=== PATIENT | female | born 1955 | race Caucasian/White ===

== ENCOUNTER 2019-09-25 10:42 | Outpatient (CLI) | payer OTHER, SELFPAY ==
[2019-09-25 10:59] LABS: Basophils Percent Auto 1.1 % (0.2-1.2); Eosinophils Absolute Auto 0.2 K/mm3 (0-0.3); Eosinophils Percent Auto 4.4 % (0-4.4); Hematocrit 36.8 % (37.0-47.0); Immature Granulocyte Absolute 0.01 K/mm3 (0.00-0.031); Immature Granulocyte Percent A 0.3 % (0-0.5); Lymphocytes Absolute Auto 1.34 K/mm3 (0.9-3.2); Lymphocytes Percent Auto 36.6 % (18.3-44.2); Mean Corpuscular HGB Conc 32.6 g/dl (32-36); Mean Corpuscular Hemoglobin 29.7 pg (26-34); Mean Corpuscular Volume 91.1 fl (80-100); Mean Platelet Volume 11.8 fl (7.4-10.4); Monocytes Absolute Auto 0.5 K/mm3 (0.1-0.6); Monocytes Percent Auto 13.1 % (2.6-8.5); Neutrophils Absolute Auto 1.6 K/mm3 (1.3-6.7); Neutrophils Percent Auto 44.5 % (45.5-73.1); Platelet Count Result 210 k/mm3 (150-375); Red Blood Count 4.04 M/mm3 (4.2-5.4); Red Cell Distribution Width 13.3 % (11.5-14.5); White Blood Count 3.7 K/mm3 (4.5-10.0)
[2019-09-25 11:53] LABS: Iron 108 ug/dL (37-170)
[2019-09-25 12:05] LABS: Percent Iron Saturation 30 % (20-50)
== END 2019-09-25 10:43 | disposition home or self-care (01) ==
PROVIDERS: PCP Internal Medicine; Visit Provider Internal Medicine Hematology & Oncology
DX: D50.9 Iron deficiency anemia, unspecified (principal)
CPT/HCPCS: 36415; 82728; 83540; 83550; 85025

== ENCOUNTER 2020-04-30 08:02 | Outpatient (CLI) | payer OTHER, SELFPAY ==
--- NOTE | ~2020-04-30 | MM_ITS ---
EXAMINATION: MM screening [facility] HISTORY: Screening TECHNIQUE: Craniocaudal and mediolateral oblique 3-D tomosynthesis images were obtained and synthetic 2-D images were generated. CAD analysis was submitted and interpreted. COMPARISON: Comparison to multiple prior studies sequentially, with oldest reviewed study dated 12/13. BREAST PARENCHYMAL COMPOSITION: There are scattered areas of fibroglandular density. FINDINGS: There is no evidence of suspicious mass, calcification, or architectural distortion to sugg est malignancy in either breast. There has been no suspicious interval change. IMPRESSION: 1. No mammographic evidence of malignancy. 2. Recommend routine screening mammography in one year. BI-RADS Category 1: Negative Reviewed, dictated and finalized at location A.
--- NOTE | ~2020-04-30 | DEXA_ITS ---
Bone Density Report Name: Trice Luna Age: 64 Sex: Female Ethnicity: White Date of : 1955 Indication: postmenopausal; height loss; hysterectomy; rheumatoid arthritis; Referring Provider: REGINA SALAZAR Study: Bone densitometry was performed. Exam Date: April 30, 2020 Accession number: [id number] Bone Density: Region BMD T-score Z-score Classification AP Spine (L1-L4) 1.143 0.9 2.5 Normal Femoral Neck (Left) 0.782 -0.6 0.8 Normal Total Hip (Left) 1.091 1.2 2.4 Normal Total Hip Bilateral Avg 1.095 1.3 2.4 Normal Femoral Neck (Right) 0.831 -0.2 1.3 Normal Total Hip (Right) 1.097 1.3 2.4 Normal World Health Organization criteria for BMD impression classify patients as: Normal (T-score at or above -1.0), Osteopenia (T-score between -1.0 and -2.5), or Osteoporosis (T-score at or below -2.5). 10-year Fracture Risk: FRAX not reported because: All T-scores for Spine Total, Hip Total, Femoral Neck at or above -1.0 Previous Exams: Region Exam Age BMD T-score BMD Change BMD Change Date g/cm2 vs Baseline vs Previous AP Spine(L1-L4) 04/30/2020 64 1.143 0.9 -0.050(-4.2%)# 0.023(2.0%) 03/05/2017 61 1.121 0.7 -0.073(-6.1%)# -0.073(-6.1%)# 12/09/2012 57 1.194 1.3 Total Hip(Left) 04/30/2020 64 1.091 1.2 -0.155(-12.4%) -0.081(-6.9%)* 03/05/2017 61 1.171 1.9 -0.074(-6.0%)# -0.074(-6.0%)# 12/09/2012 57 1.246 2.5 Total Hip(Right) 04/30/2020 64 1.097 1.3 -0.105(-8.7%)# -0.048(-4.2%)* 03/05/2017 61 1.144 1.7 -0.057(-4.8%)# -0.057(-4.8%)# 12/09/2012 57 1.202 2.1 *Denotes significance at 95% confidence level, LSC for AP Spine = 0.022 g/cm2, LSC for Total Hip = 0.027 g/cm2 Clinical Information Provided by Patient: Has rheumatoid arthritis Has used the following medications: HRT (i.e. estrogen/hormone therapy), Calcium Has the following medical conditions: Hysterectomy Patient maximum height was 67.5 Menopause Age: 55 No regular weight bearing exercise Drinks caffeinated beverages Onset of menses at age 13 Number of children 1 Impression: The patient has normal bone mass. The BMD for the Total Hip(Left) decreased, changing by -6.9% since the last DXA exam. The BMD for the Total Hip(Right) decreased, changing by -4.2% since the last DXA exam. Discussion: BONE DENSITY IS ABOVE THE MINIMUM DESIRABLE LEVEL AT ALL SKELETAL SITES TESTED. This patient?s bone mineral density is above the minimu
== END 2020-04-30 08:03 | disposition home or self-care (01) ==
LOC: ANHIMG 08:05
PROVIDERS: Visit Provider Obstetrics & Gynecology Gynecology
DX: Z12.31 Encounter for screening mammogram for malignant neoplasm of breast (principal); Z78.0 Asymptomatic menopausal state
CPT/HCPCS: 77063; 77067; 77080

== ENCOUNTER 2020-06-24 10:43 | Outpatient (CLI) | payer OTHER, SELFPAY ==
[2020-06-24 11:27] LABS: Basophils Percent Auto 1.2 % (0.2-1.2); Eosinophils Absolute Auto 0.2 K/mm3 (0-0.3); Eosinophils Percent Auto 4.5 % (0-4.4); Hematocrit 38.3 % (37.0-47.0); Hemoglobin 12.2 g/dL (12.0-15.0); Lymphocytes Absolute Auto 1.08 K/mm3 (0.9-3.2); Lymphocytes Percent Auto 32.3 % (18.3-44.2); Mean Corpuscular HGB Conc 31.9 g/dl (32-36); Mean Corpuscular Hemoglobin 29.8 pg (26-34); Mean Corpuscular Volume 93.6 fl (80-100); Mean Platelet Volume 12.4 fl (7.4-10.4); Monocytes Absolute Auto 0.5 K/mm3 (0.1-0.6); Monocytes Percent Auto 15.3 % (2.6-8.5); Neutrophils Absolute Auto 1.6 K/mm3 (1.3-6.7); Neutrophils Percent Auto 46.7 % (45.5-73.1); Platelet Count Result 181 k/mm3 (150-375); Red Blood Count 4.09 M/mm3 (4.2-5.4); White Blood Count 3.3 K/mm3 (4.5-10.0)
[2020-06-24 17:15] LABS: Iron 113 ug/dL (37-170)
[2020-06-24 17:16] LABS: Alanine Aminotransferase 23 U/L (4-35); Albumin Level 4.2 g/dL (3.5-5.1); Alkaline Phosphatase 74 U/L (38-126); Anion Gap 6 mmol/L (8-16); Aspartate Amino Transferase 27 U/L (14-36); Bilirubin,Total 0.3 mg/dL (0.2-1.3); Blood Urea Nitrogen 15 mg/dL (7-17); Calcium 9.3 mg/dL (8.4-10.2); Carbon Dioxide 30 mmol/L (22-30); Chloride 104 mmol/L (98-107); Estimated Glomerular Filt Rate > 60; Glucose 162 mg/dL (65-105); Potassium 4.1 mmol/L (3.4-5.0); Sodium 140 mmol/L (137-145)
[2020-06-24 17:25] LABS: Percent Iron Saturation 34 % (20-50)
== END 2020-06-24 10:44 | disposition home or self-care (01) ==
PROVIDERS: Visit Provider Internal Medicine Hematology & Oncology
DX: D50.9 Iron deficiency anemia, unspecified (principal)
CPT/HCPCS: 36415; 80053; 82728; 83540; 83550; 85025

== ENCOUNTER 2021-01-08 10:01 | Outpatient (CLI) | payer OTHER, SELFPAY ==
[2021-01-08 10:35] LABS: Basophils Percent Auto 0.8 % (0.2-1.2); Eosinophils Absolute Auto 0.3 K/mm3 (0-0.3); Eosinophils Percent Auto 5.8 % (0-4.4); Hemoglobin 12.4 g/dL (12.0-15.0); Immature Granulocyte Absolute 0.02 K/mm3 (0.00-0.031); Immature Granulocyte Percent A 0.4 % (0-0.5); Lymphocytes Absolute Auto 0.82 K/mm3 (0.9-3.2); Lymphocytes Percent Auto 15.8 % (18.3-44.2); Mean Corpuscular HGB Conc 31.8 g/dl (32-36); Mean Corpuscular Volume 91.1 fl (80-100); Mean Platelet Volume 12.4 fl (7.4-10.4); Monocytes Absolute Auto 0.4 K/mm3 (0.1-0.6); Monocytes Percent Auto 8.1 % (2.6-8.5); Neutrophils Absolute Auto 3.6 K/mm3 (1.3-6.7); Neutrophils Percent Auto 69.1 % (45.5-73.1); Platelet Count Result 216 k/mm3 (150-375); Red Blood Count 4.28 M/mm3 (4.2-5.4); Red Cell Distribution Width 13.6 % (11.5-14.5); White Blood Count 5.2 K/mm3 (4.5-10.0)
[2021-01-08 12:19] LABS: Alanine Aminotransferase 100 U/L (4-35); Albumin Level 3.8 g/dL (3.5-5.1); Alkaline Phosphatase 146 U/L (38-126); Anion Gap 5 mmol/L (8-16); Aspartate Amino Transferase 113 U/L (14-36); Bilirubin,Total 0.6 mg/dL (0.2-1.3); Blood Urea Nitrogen 16 mg/dL (7-17); Calcium 9.2 mg/dL (8.4-10.2); Carbon Dioxide 26 mmol/L (22-30); Chloride 105 mmol/L (98-107); Estimated Glomerular Filt Rate > 60; Glucose 269 mg/dL (65-105); Potassium 4.6 mmol/L (3.4-5.0); Sodium 136 mmol/L (137-145)
[2021-01-08 13:26] LABS: Iron 95 ug/dL (37-170)
[2021-01-08 13:42] LABS: Percent Iron Saturation 30 % (20-50)
== END 2021-01-08 10:02 | disposition home or self-care (01) ==
PROVIDERS: Visit Provider Internal Medicine Hematology & Oncology
DX: D50.9 Iron deficiency anemia, unspecified (principal); D68.59 Other primary thrombophilia
CPT/HCPCS: 36415; 80053; 82728; 83540; 83550; 85025

== ENCOUNTER 2021-01-18 07:57 | Outpatient (CLI) | payer OTHER, SELFPAY ==
--- NOTE | ~2021-01-18 | US_ITS ---
US abdomen complete EXAMINATION: US Abdomen Complete INDICATION: Elevated liver function tests PROCEDURE: Realtime High Resolution abdomen ultrasound. COMPARISON: No prior studies for comparison FINDINGS: Gallbladder is surgically absent. Common bile duct measures 4 mm. Liver echotexture is increased, consistent with fatty infiltration. There is a cyst right hepatic lob e.. Pancreas within normal limits. Pancreatic tail is obscured by bowel gas. Spleen is unremarkeab le. Renal echotexture is within normal limits bilaterally without hydronephrosis, contour deforming m ass or renal stone. Right kidney measures 12.6 cm. Left kidney measures 9.5 cm. Visualized aspects of the aorta and IVC are within normal limits. Portal vein is patent. No sonograph ic Cantrell's sign indicated by the technologist. IMPRESSION: 1: Hepatic steatosis. Reviewed, dictated and finalized at location A. IMPRESSION: 1: Hepatic steatosis.
== END 2021-01-18 07:58 | disposition home or self-care (01) ==
LOC: ANHIMG 08:02
PROVIDERS: Visit Provider Internal Medicine Hematology & Oncology
DX: R79.89 Other specified abnormal findings of blood chemistry (principal); K76.0 Fatty (change of) liver, not elsewhere classified
CPT/HCPCS: 76700

== ENCOUNTER 2021-05-01 15:22 | Outpatient (CLI) | payer OTHER, SELFPAY ==
--- NOTE | ~2021-05-01 | MM_ITS ---
EXAMINATION: MM screening [facility] w [facility] HISTORY: Screening mammogram TECHNIQUE: Craniocaudal and mediolateral oblique 3-D tomosynthesis images were obtained and synthetic 2-D images were generated. CAD analysis was submitted and interpreted. COMPARISON: No prior mammogram is available for comparison at this institution. BREAST PARENCHYMAL COMPOSITION: There are scattered areas of fibroglandular density. FINDINGS: There is no evidence of suspicious mass, calcification, or architectural distortion to sugg est malignancy in either breast. There has been no suspicious interval change. IMPRESSION: 1. No mammographic evidence of malignancy. 2. Recommend routine screening mammography in one year. BI-RADS Category 1: Negative Reviewed, dictated and finalized at location A.
== END 2021-05-01 15:23 | disposition home or self-care (01) ==
LOC: ANHIMG 15:24
PROVIDERS: Visit Provider Obstetrics & Gynecology Gynecology
DX: Z12.31 Encounter for screening mammogram for malignant neoplasm of breast (principal)
CPT/HCPCS: 77063; 77067

== ENCOUNTER 2021-07-08 13:16 | Outpatient (CLI) | payer OTHER, SELFPAY ==
[2021-07-08 13:48] LABS: Basophils Percent Auto 0.4 % (0.2-1.2); Eosinophils Absolute Auto 0.1 K/mm3 (0-0.3); Eosinophils Percent Auto 0.7 % (0-4.4); Hematocrit 42.1 % (37.0-47.0); Hemoglobin 13.8 g/dL (12.0-15.0); Immature Granulocyte Absolute 0.03 K/mm3 (0.00-0.031); Immature Granulocyte Percent A 0.4 % (0-0.5); Lymphocytes Absolute Auto 0.72 K/mm3 (0.9-3.2); Lymphocytes Percent Auto 8.7 % (18.3-44.2); Mean Corpuscular HGB Conc 32.8 g/dl (32-36); Mean Corpuscular Volume 88.4 fl (80-100); Mean Platelet Volume 12.6 fl (7.4-10.4); Monocytes Absolute Auto 0.5 K/mm3 (0.1-0.6); Monocytes Percent Auto 6.4 % (2.6-8.5); Neutrophils Absolute Auto 6.9 K/mm3 (1.3-6.7); Neutrophils Percent Auto 83.4 % (45.5-73.1); Platelet Count Result 197 k/mm3 (150-375); Red Blood Count 4.76 M/mm3 (4.2-5.4); White Blood Count 8.3 K/mm3 (4.5-10.0)
[2021-07-08 16:45] LABS: Iron 89 ug/dL (37-170)
[2021-07-08 16:50] LABS: Alanine Aminotransferase 43 U/L (4-35); Albumin Level 4.5 g/dL (3.5-5.1); Alkaline Phosphatase 119 U/L (38-126); Anion Gap 10 mmol/L (8-16); Aspartate Amino Transferase 33 U/L (14-36); Bilirubin,Total 0.6 mg/dL (0.2-1.3); Blood Urea Nitrogen 16 mg/dL (7-17); Calcium 9.3 mg/dL (8.4-10.2); Carbon Dioxide 24 mmol/L (22-30); Chloride 96 mmol/L (98-107); Estimated Glomerular Filt Rate > 60; Glucose 496 mg/dL (65-110); Potassium 4.5 mmol/L (3.4-5.0); Sodium 130 mmol/L (137-145)
[2021-07-08 16:55] LABS: Percent Iron Saturation 27 % (20-50)
== END 2021-07-08 13:17 | disposition home or self-care (01) ==
PROVIDERS: Visit Provider Internal Medicine Hematology & Oncology
DX: D50.9 Iron deficiency anemia, unspecified (principal); D68.59 Other primary thrombophilia
CPT/HCPCS: 36415; 80053; 82728; 83540; 83550; 85025

== ENCOUNTER 2021-11-02 13:56 | Emergency (ER) | payer MEDICARE, SELFPAY ==
--- NOTE | ~2021-11-02 | XR_ITS ---
EXAMINATION: XR knee LT 3V DATE: 11/02/2021 15:44 INDICATION: Abrasions to the left knee post ground-level fall TECHNIQUE: Anteroposterior, 2 oblique and crosstable lateral views of the left knee were obtained COMPARISON: None. FINDINGS: Alignment is normal. No fracture. Chondrocalcinosis best evident at the lateral compartment. There i s mild joint space narrowing the medial compartment which could be underestimated on nonweightbearing imaging. Ju-Stieda lesion with heterotopic ossification at the medial epicondylar origin of the medial collateral ligament consistent with sequela of chronic sprain. No left knee joint effusion /layering lipohemarthrosis. Soft tissues are unremarkable. IMPRESSION: 1. 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 No ac treasure osseous abnormality. 2. Ju-Stieda lesion consistent with sequela of chronic medial collateral ligament sprain. Reviewed, dictated and finalized at location A. IMPRESSION: 1. Chondral calcinosis and at least mild osteoarthritis in medial compartment o f the left knee. No acute osseous abnormality. 2. Ju-Stieda lesion consistent with sequela of chronic medial collater al ligament sprain.
--- NOTE | ~2021-11-02 | CT_ITS ---
EXAMINATION: CT brain wo con DATE: 11/02/2021 16:09 INDICATION: Head injury with hematoma both the left orbit post fall TECHNIQUE: Computed tomography (CT) of the head was performed without intravenous contrast. Sagittal and coronal reconstructions were performed. The mA was adjusted according to patient size. Iterative reconstruction technique was employed. The dose-length product was 605.33 mGy-cm. COMPARISON: head CT dated 05/25/2017 FINDINGS: Small left supraorbital scalp hematoma with preseptal soft tissue swelling at the left orbit. Bilater al globes appear intact with change of bilateral intraocular lens replacements. No post septal inflam matory stranding. No fracture. No acute intracranial hemorrhage, acute infarction or abnormal extra a xial fluid collection. There is mild scattered white matter hypoattenuation consistent with chronic s mall vessel ischemic disease. Ventricles are normal and symmetric. No mass/mass effect. The orbits, p aranasal sinuses and mastoid air cells are normal. IMPRESSION: 1. No fracture or acute intracranial process. 2. Mild scattered white matter hypoattenuation consistent with chronic small vessel ischemic disease. Reviewed, dictated and finalized at location A. IMPRESSION: 1. No fracture or acute intracranial process. 2. Mild scattered white matter hypoattenuation consistent with chronic small ve ssel ischemic disease.
[2021-11-02 14:03] VITALS: BP 130/90; PULSE 96; RESP 14; TEMP 37; O2SAT 100
--- NOTE | 2021-11-02 16:35 | ED.HEATRA ---
HPI - Head Injury General Chief complaint: Head Injury Stated complaint: fall/ struck head Time Seen by Provider: 11/02/21 15:16 Source: patient History of Present Illness HPI Narrative: Patient presents after a ground-level fall. Reports she was going on her daily walk with her and tripped over her own feet. She reports this happens from time to time she denies any prodrome prior to the fall such as chest pain shortness of breath or weakness. Reports she landed on her knees hands and then hit her face on the concrete. Plan encourage her to come to the ER for further evaluation. Denied any loss of conscious denies use of blood thinners she denies any nausea vomiting or changes in vision. Reports bruising to her left eye and an abrasion to her left knee. Her pain around her left eye is achy, constant, no radiation, no clear aggravating or alleviating factors. Related Data Allergies Allergy/AdvReac Type Severity Reaction Status Date / Time Cephalosporins Allergy Unknown Unknown Verified 11/02/21 15:08 prochlorperazine Allergy Unknown Unknown Verified 11/02/21 15:08 promethazine Allergy Unknown Unknown Verified 11/02/21 15:08 CEFTRIAXONE SODIUM Allergy Severe BODY Uncoded 09/10/21 15:35 STIFFNESS NKFA Allergy Unknown Unknown Uncoded 11/02/21 15:08 Review of Systems Review of Systems: CONSTITUTIONAL: Denies fever, chills, or sweats. EYES: Denies visual changes, redness, or discharge. ENT: Denies rhinorrhea, congestion, sore throat, or otalgia. CARDIOVASCULAR: Denies chest pain, palpitations, or edema. RESPIRATORY: Denies cough or dyspnea. GASTROINTESTINAL: Denies abdominal pain, nausea, vomiting, or diarrhea. GENITOURINARY: Denies dysuria or hematuria. SKIN: Denies rash or itching. MUSCULOSKELETAL: Denies back pain, or myalgia. NEUROLOGIC: Denies numbness, dizziness, or weakness. PSYCHIATRIC: Denies anxiety or depression. [facility] Family History Family History Father Hypertension Family history of diabetes mellitus in first degree relative Family history of heart disease in male family member before age 55 Mother Hypertension Family history of heart disease in male family member before age 55 Social History Social History Alcohol intake: current Exam Narrative: GENERAL: Well-appearing, well-nourished, and in no acute distress. HEAD: Normocephalic, moderate size hematoma above the left orbit with ecchymoses with associated abrasion EYES: PERRLA and EOMI. ENT: Nares clear, no rhinorrhea or epistaxis. Mucous membranes moist. NECK: Supple. No masses. No JVD CHEST: Clear to auscultation. No respiratory distress. No wheezes rales or rhonchi HEART: Regular rate and rhythm. No murmur heard. Normal peripheral pulses. ABDOMEN: Soft, nontender, nondistended, normal active bowel sounds. EXTREMITIES: Normal range of motion. Abrasion noted to the left knee no focal bony tenderness SKIN: Warm, dry, no rash. NEURO: Cranial nerves II through XII are intact patient is 5 out of 5 strength in all extremities sensation intact to light touch in all extremities alert and oriented x3. PSYCH: Normal mood and affect. Course Reevaluation(s) Reevaluation #1: Patient resting comfortably imaging reviewed with patient. Patient is comfortable outpatient plan. Date: 11/02/21 Time: 16:38 Vital Signs Vital signs: Vital Signs Temperature 37.0 C 11/02/21 14:03 Pulse Rate 96 11/02/21 14:03 Respiratory Rate 14 11/02/21 14:03 Blood Pressure 130/90 11/02/21 14:03 Pulse Oximetry 100 11/02/21 14:03 Temperature 37.0 C 11/02/21 14:03 Pulse Rate 96 11/02/21 14:03 Respiratory Rate 14 11/02/21 14:03 Blood Pressure 130/90 11/02/21 14:03 Pulse Oximetry 100 11/02/21 14:03 MDM - Head Injury MDM Narrative Medical decision making narrative: H&P as above, vss, pt looks clinically well, exam with brayan
== END 2021-11-02 16:56 | disposition home or self-care (01) ==
PROVIDERS: Emergency Provider Emergency Medicine
DX: S05.12XA Contusion of eyeball and orbital tissues, left eye, initial encounter (principal); S80.212A Abrasion, left knee, initial encounter; M17.12 Unilateral primary osteoarthritis, left knee; M76.42 Tibial collateral bursitis [Pellegrini-Stieda], left leg; W01.0XXA Fall on same level from slipping, tripping and stumbling without subsequent striking against object, initial encounter
CPT/HCPCS: 70450; 73562; 99284

== ENCOUNTER 2022-06-05 09:19 | Outpatient (CLI) | payer MEDICARE, SELFPAY ==
--- NOTE | ~2022-06-05 | MM_ITS ---
EXAMINATION: MM screening [place] [facility] HISTORY: Screening TECHNIQUE: Craniocaudal and mediolateral oblique 3-D tomosynthesis images were obtained and synthetic 2-D images were generated. CAD analysis was submitted and interpreted. COMPARISON: Comparison to multiple prior studies sequentially, with oldest reviewed study dated 04/2016. BREAST PARENCHYMAL COMPOSITION: There are scattered areas of fibroglandular density. FINDINGS: There is no evidence of suspicious mass, calcification, or architectural distortion to sugg est malignancy in either breast. There has been no suspicious interval change. IMPRESSION: 1. No mammographic evidence of malignancy. 2. Recommend routine screening mammography in one year. BI-RADS Category 1: Negative Reviewed, dictated and finalized at location A.
== END 2022-06-05 09:20 | disposition home or self-care (01) ==
PROVIDERS: Visit Provider Obstetrics & Gynecology Gynecology
DX: Z12.31 Encounter for screening mammogram for malignant neoplasm of breast (principal)
CPT/HCPCS: 77063; 77067

== ENCOUNTER 2022-07-07 13:38 | Outpatient (CLI) | payer MEDICARE, SELFPAY ==
[2022-07-07 13:54] LABS: Basophils Percent Auto 0.3 % (0.2-1.2); Eosinophils Absolute Auto 0.1 K/mm3 (0-0.3); Eosinophils Percent Auto 0.9 % (0-4.4); Hematocrit 41.8 % (37.0-47.0); Hemoglobin 13.4 g/dL (12.0-15.0); Immature Granulocyte Absolute 0.01 K/mm3 (0.00-0.031); Immature Granulocyte Percent A 0.1 % (0-0.5); Lymphocytes Absolute Auto 2.54 K/mm3 (0.9-3.2); Lymphocytes Percent Auto 36.5 % (18.3-44.2); Mean Corpuscular HGB Conc 32.1 g/dl (32-36); Mean Corpuscular Hemoglobin 29.5 pg (26-34); Mean Corpuscular Volume 92.1 fl (80-100); Mean Platelet Volume 11.6 fl (7.4-10.4); Monocytes Absolute Auto 0.6 K/mm3 (0.1-0.6); Monocytes Percent Auto 9.1 % (2.6-8.5); Neutrophils Absolute Auto 3.7 K/mm3 (1.3-6.7); Neutrophils Percent Auto 53.1 % (45.5-73.1); Platelet Count Result 273 k/mm3 (150-375); Red Blood Count 4.54 M/mm3 (4.2-5.4); Red Cell Distribution Width 12.9 % (11.5-14.5)
[2022-07-07 16:29] LABS: Iron 75 ug/dL (37-170)
[2022-07-07 16:30] LABS: Alanine Aminotransferase 29 U/L (6-35); Albumin Level 4.8 g/dL (3.5-5.1); Alkaline Phosphatase 77 U/L (38-126); Anion Gap 14 mmol/L (8-16); Aspartate Amino Transferase 33 U/L (14-36); Bilirubin,Total 0.5 mg/dL (0.2-1.3); Blood Urea Nitrogen 15 mg/dL (7-17); Calcium 9.4 mg/dL (8.4-10.2); Carbon Dioxide 25 mmol/L (22-30); Chloride 101 mmol/L (98-107); Estimated Glomerular Filt Rate > 60; Glucose 121 mg/dL (65-110); Potassium 4.3 mmol/L (3.4-5.0); Sodium 140 mmol/L (137-145)
[2022-07-07 16:39] LABS: Percent Iron Saturation 21 % (20-50)
== END 2022-07-07 13:39 | disposition home or self-care (01) ==
LOC: ANHLAB 13:39
PROVIDERS: Visit Provider Internal Medicine Hematology & Oncology
DX: D50.9 Iron deficiency anemia, unspecified (principal)
CPT/HCPCS: 36415; 80053; 82728; 83540; 83550; 85025

== ENCOUNTER 2022-09-16 14:38 | Observation (INO) | payer MEDICARE, SELFPAY ==
--- NOTE | ~2022-09-16 | CT_ITS ---
EXAMINATION: CT abdomen pelvis w con DATE: 09/16/2022 16:01 INDICATION: Epigastric abdominal pain. TECHNIQUE: Computed tomography (CT) of the abdomen and pelvis was performed with 100 mL Omnipaque 350 intravenous contrast. Automated exposure control and iterative reconstruction technique were employe d. The dose-length product was 1411.40 mGy-cm. COMPARISON: None. FINDINGS: The visualized portions of the lung bases demonstrate mild scarring in paraspinal right low er lobe. There is a 4 mm nodule right middle lobe, likely benign. No pleural effusion. The heart size is normal. No pericardial effusion. There is wall thickening of the distal esophagus. There is a mod erate-sized sliding hiatal hernia. There is a 3.5 cm cyst in the liver. There are changes of cholecys tectomy. The spleen, pancreas, and adrenal glands are normal. There are cysts in the kidneys measurin g up to 2.5 cm on the right. The appendix is fluid-filled and measures 7 mm in diameter. There are no pathologically enlarged lymph nodes. There is no free intraperitoneal fluid. There is an electrode i n left S3 neural foramen. There is an electronic implant in left anterior chest wall. There is mild t horacolumbar spondylosis. There is mild chronic anterior wedging of multiple vertebral bodies. There are a few benign bone islands in the spine. IMPRESSION: 1. Moderate-sized sliding hiatal hernia. 2. Wall thickening of the distal esophagus, likely esophagitis. 3. Fluid-filled appendix with diameter of 7 mm, which is indeterminate for appendicitis. Reviewed, dictated and finalized at location A. ASSISTANT MANAGER IMPRESSION: 1. Moderate-sized sliding hiatal hernia. 2. Wall thickening of the distal esophagus, likely esophagitis. 3. Fluid-filled appendix with diameter of 7 mm, which is indeterminate for appe ndicitis.
[2022-09-16 14:41] VITALS: BP 147/109; PULSE 106; RESP 18; TEMP 36.3; O2SAT 97
[2022-09-16 15:13] LABS: Basophils Percent Auto 0.1 % (0.2-1.2); Hematocrit 39.7 % (37.0-47.0); Hemoglobin 12.9 g/dL (12.0-15.0); Immature Granulocyte Absolute 0.06 K/mm3 (0.00-0.031); Immature Granulocyte Percent A 0.4 % (0-0.5); Lymphocytes Absolute Auto 2.11 K/mm3 (0.9-3.2); Lymphocytes Percent Auto 13.3 % (18.3-44.2); Mean Corpuscular HGB Conc 32.5 g/dl (32-36); Mean Corpuscular Hemoglobin 29.4 pg (26-34); Mean Corpuscular Volume 90.4 fl (80-100); Mean Platelet Volume 12.2 fl (7.4-10.4); Monocytes Absolute Auto 1.1 K/mm3 (0.1-0.6); Monocytes Percent Auto 6.8 % (2.6-8.5); Neutrophils Absolute Auto 12.6 K/mm3 (1.3-6.7); Neutrophils Percent Auto 79.4 % (45.5-73.1); Platelet Count Result 303 k/mm3 (150-375); Red Blood Count 4.39 M/mm3 (4.2-5.4); Red Cell Distribution Width 13.8 % (11.5-14.5); White Blood Count 15.9 K/mm3 (4.5-10.0)
[2022-09-16 15:22] LABS: Alanine Aminotransferase 31 U/L (6-35); Albumin Level 4.5 g/dL (3.5-5.1); Alkaline Phosphatase 75 U/L (38-126); Anion Gap 14 mmol/L (8-16); Aspartate Amino Transferase 33 U/L (14-36); Bilirubin,Total 0.5 mg/dL (0.2-1.3); Blood Urea Nitrogen 19 mg/dL (7-17); Calcium 9.9 mg/dL (8.4-10.2); Carbon Dioxide 22 mmol/L (22-30); Chloride 100 mmol/L (98-107); Estimated CRCL calculation 78 ml/min; Estimated Glomerular Filt Rate > 60; Glucose 136 mg/dL (65-110); Lipase 179 U/L (23-300); Potassium 4.5 mmol/L (3.4-5.0); Sodium 136 mmol/L (137-145)
[2022-09-16 15:34] LABS: Lactic Acid Reflex 4.7 mmol/L (0.7-2.0)
--- NOTE | 2022-09-16 15:48 | ED.ABDPAIN ---
HPI - Abdominal Pain General Chief Complaint: Abdominal Pain Stated Complaint: epigastric pain Time Seen by Provider: 09/16/22 14:55 History of Present Illness HPI narrative: 67-year-old female with history of hysterectomy, cholecystectomy, diabetes, prior DVT, hypertension, hyperlipidemia presented to the emergency department for evaluation of epigastric pain. Patient states on Wednesday she began having decreased p.o. intake and epigastric pain. Patient denies any associated nausea or vomiting but does report decreased p.o. intake. Patient states she has not had a bowel movement in the last 3 days but states she is still passing flatus. Patient states she is also having increased belching. Related Data Allergies Allergy/AdvReac Type Severity Reaction Status Date / Time Cephalosporins Allergy Unknown Unknown Verified 09/16/22 14:45 prochlorperazine Allergy Unknown Unknown Verified 09/16/22 14:45 promethazine Allergy Unknown Unknown Verified 09/16/22 14:45 CEFTRIAXONE SODIUM Allergy Severe BODY Uncoded 09/10/21 15:35 STIFFNESS NKFA Allergy Unknown Unknown Uncoded 11/02/21 15:08 Review of Systems Review of Systems: CONSTITUTIONAL: Denies fever, chills, or sweats. EYES: Denies visual changes, redness, or discharge. ENT: Denies rhinorrhea, congestion, sore throat, or otalgia. CARDIOVASCULAR: Denies chest pain, palpitations, or edema. RESPIRATORY: Denies cough or dyspnea. GASTROINTESTINAL: See HPI GENITOURINARY: Denies dysuria or hematuria. SKIN: Denies rash or itching. MUSCULOSKELETAL: Denies back pain, joint pain, or myalgia. NEUROLOGIC: Denies headache, numbness, or weakness. [facility] Past Medical History Medical History (Updated 09/16/22 @ 18:04 by Poli Orosco MD) Anxiety and depression Diabetes DVT (deep venous thrombosis) Hyperlipidemia Hypertension Psoriatic arthritis Rheumatic aortitis Surgical History Surgical History (Updated 09/16/22 @ 17:25 by Marium Blake NP) H/O section H/O dilation and curettage H/O eye surgery H/O knee surgery H/O: hysterectomy History of bladder surgery History of ear surgery History of mandibular surgery Hx of cholecystectomy S/P endometrial ablation S/P tonsillectomy Family History Family History Father Hypertension Family history of diabetes mellitus in first degree relative Family history of heart disease in male family member before age 55 Mother Hypertension Family history of heart disease in male family member before age 55 Social History Social History (Updated 09/16/22 @ 17:27 by Marium Blake NP) Social History: . 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 HEAD: normocephalic, atraumatic. EYES: PERRLA/EOMI, conjunctivae clear. NOSE: Normal no drainage NECK: Supple. No adenopathy, no masses. RESPIRATORY: Airway patent, respirations nonlabored. Clear to auscultation bilaterally, no rales, rhonchi, wheezing. CARDIOVASCULAR: Regular rate and rhythm without murmurs rubs or gallops. ABDOMINAL: Epigastric pain without significant epigastric tenderness to palpation. No right lower quadrant report of pain and no reproducible tenderness to palpation of the right lower quadrant. MUSCULOSKELETAL: Moves all extremities. Strength/ROM intact, No edema, No calf tenderness. NEURO: Alert. Cranial nerves II through XII intact. Grossly intact SKIN: Warm, dry. Normal Color Course Course Emergency Course: CT showed evidence of esophagitis patient was treated with IV Protonix. Patient had an elevated lactic acid and she also received 2 L of IV normal saline. Patient CT did show enlargement of the appendix and patient does have a leukocytosis of 15.9. Blood cultures were ordered and patient was treated with a single dose of Cipro and Flagyl. Case was discussed with the surgeon on-c
[2022-09-16] MEDS: SODIUM CHLORIDE 0.9% IV 1,000 ML 999 ML IV CONT ×2 (16:22→18:26)
[2022-09-16] MEDS: HYDROmorphone HCL INJ (*CRX) 1 MG/ML SYR IV PUSH (16:22)
[2022-09-16 16:41] LABS: Influenza A QL RT-PCR Negative (Negative); Influenza B QL RT-PCR Negative (Negative); SARS-CoV-2 RNA PCR Negative
[2022-09-16] MEDS: PANTOPRAZOLE SODIUM IV 40 MG VIAL IV PUSH (16:42)
--- NOTE | 2022-09-16 17:15 | PM.IMHP ---
H&P: HPI History of Present Illness Date/Time: 09/16/22 17:15 Chief Complaint: Abdominal pain Narrative: This is a 67-year-old female patient who has had multiple abdominal surgeries in the past. The patient was complaining of epigastric pain. This started on Wednesday and she has had decreased oral intake. She denied any nausea vomiting or diarrhea. The patient stated that she has been having a lot of abdominal distention as well as feeling gassy. She also has been having increased belching as well. Her white count was noted to be 15.9. Initially her lactic acid was 4.7 now it is 2.9. Her glucose was 136. Her urine is clear in her influenza A/B and COVID are all negative. The patient has a moderate-sized sliding hiatal hernia. Wall thickening of the distal esophagus likely esophagitis. Fluid-filled appendix with diameter 7 mm which is indeterminate for appendicitis. Surgery has been consulted and agreed to see the patient although it is least likely that this is appendicitis. The patient was given IV fluids, Dilaudid, Protonix, Flagyl and Cipro. The patient is being admitted to observation status on the date of service of 09/16/2022 Review of Systems Review of Systems: See HPI All systems reviewed & are unremarkable except as noted in HPI and below Constitutional: Constitutional: Reports as per HPI and Reports no additional constitutional complaints Eyes: Eyes: Reports as per HPI and Reports no additional eye complaints ENT: Reports system reviewed and no additional complaints, except as documented and Reports Normal hearing present Cardiovascular: Cardiovascular: Reports no additional cardiovascular complaints Respiratory: Respiratory: Reports no additional respiratory complaints and Reports no additional respiratory complaints Gastrointestinal: Gastrointestinal: Reports as per HPI and Reports no additional gastrointestinal complaints Musculoskeletal: Musculoskeletal: Reports no additional musculoskeletal complaints Integumentary/Breasts: Skin/Breast: Reports system reviewed and no additional complaints, except as docu and Reports as per HPI Neurologic: Reports system reviewed and no additional complaints, except as documented, Reports as per HPI and Reports Normal hearing present Psychiatric: Psychiatric: Reports no additional psychiatric complaints and Reports as per HPI Endocrine: Endocrine: Reports no additional endocrine complaints Hematologic/Lymphatic: Hematologic/Lymphatic: Reports no additional hematologic/lymphatic complaints Allergic/Immunologic: Allergic/Immunologic: Reports no additional allergic/immunologic complaints [facility] Past Medical History Medical History Anxiety and depression Diabetes DVT (deep venous thrombosis) Hyperlipidemia Hypertension Psoriatic arthritis Rheumatic aortitis Surgical History Surgical History H/O section H/O dilation and curettage H/O eye surgery H/O knee surgery H/O: hysterectomy History of bladder surgery History of ear surgery History of mandibular surgery Hx of cholecystectomy S/P endometrial ablation S/P tonsillectomy Family History Family History Father Hypertension Family history of diabetes mellitus in first degree relative Family history of heart disease in male family member before age 55 Mother Hypertension Family history of heart disease in male family member before age 55 Social History Social History Social History: The patient is . She has 1 daughter . She is retired from being an elementary tutor. She occasionally drinks alcohol. Alcohol intake: current Meds Home Medications and Allergies Allergies Allergy/AdvReac Type Severity Reaction Status Date / Time Cephalosporins Allergy Unkno
[2022-09-16 17:56] LABS: Appearance Urine Clear (Clear); Bilirubin Urine Negative (Negative); Blood Urine Negative (Negative); Color Urine Yellow (Yellow); Glucose Urine UA Negative (Negative); Ketones Urine Negative (Negative); Leukocyte Esterase Ur Negative LEU/UL (Negative); Nitrate Urine Negative (Negative); Protein Urine Negative (Negative); Urobilinogen Urine 0.2 mg/dL (<2.0)
[2022-09-16 18:07] LABS: Mucus Urine Rare /lpf; RBC Urine 0-2 /hpf (0-2); Squamous Epithelial Cell Urine Occasional /hpf (Few); WBC Urine 0-3 /hpf
[2022-09-16 18:09] LABS: Add Urine Microscopic? NO
[2022-09-16 18:10] VITALS: BP 139/76; PULSE 89; RESP 17; O2SAT 98
[2022-09-16 18:17] LABS: Reflex Lactic Acid Yes or No Add Lactic
[2022-09-16] MEDS: metroNIDAZOLE 500 MG/ISO 100ML 500 MG/100 ML BAG 100 MG IVPB (18:25)
[2022-09-16 19:34] LABS: Lactic Acid 2.9 mmol/L (0.7-2.0)
[2022-09-16 20:52] VITALS: BMI 37.7
--- NOTE | 2022-09-16 20:57 | ADMGEN ---
This patient, Trice Griffiths, was admitted to 3 [facility] Surg Room 307-02. Patient/family oriented to hospital policies and general routines including ID bracelet, bed and alarms, visiting hours, pain management, procedures, bathroom and other care routines, personal items, smoking policy, room service/diet, and visiting hours. Information on how to activate the Rapid Response Team has been discussed. Patient/Family are encouraged to report perceived risks to care and to ask questions if they do not understand what they are told or what they should do.
[2022-09-16 22:10] VITALS: BP 134/70; PULSE 79; RESP 16; TEMP 36.8; O2SAT 99
[2022-09-16] MEDS: SIMETHICONE 80 MG TAB.CHEW PO (22:49)
[2022-09-16 23:03] LABS: Glucose Point of Care 142 mg/dl (65-105)
[2022-09-17] MEDS: metroNIDAZOLE 500 MG/ISO 100ML 500 MG/100 ML BAG 100 MG IVPB ×3 (00:39→12:14)
[2022-09-17 06:09] LABS: Basophils Percent Auto 0.2 % (0.2-1.2); Hemoglobin 11.7 g/dL (12.0-15.0); Immature Granulocyte Absolute 0.05 K/mm3 (0.00-0.031); Immature Granulocyte Percent A 0.4 % (0-0.5); Lymphocytes Absolute Auto 1.55 K/mm3 (0.9-3.2); Lymphocytes Percent Auto 13.6 % (18.3-44.2); Mean Corpuscular HGB Conc 31.6 g/dl (32-36); Mean Corpuscular Volume 91.6 fl (80-100); Monocytes Absolute Auto 0.8 K/mm3 (0.1-0.6); Monocytes Percent Auto 6.8 % (2.6-8.5); Platelet Count Result 255 k/mm3 (150-375); Red Blood Count 4.04 M/mm3 (4.2-5.4); Red Cell Distribution Width 13.9 % (11.5-14.5); White Blood Count 11.4 K/mm3 (4.5-10.0)
[2022-09-17 06:14] VITALS: BP 135/91; PULSE 78; RESP 16; TEMP 36.2; O2SAT 100
[2022-09-17 06:28] LABS: Anion Gap 10 mmol/L (8-16); Blood Urea Nitrogen 15 mg/dL (7-17); Calcium 8.9 mg/dL (8.4-10.2); Carbon Dioxide 26 mmol/L (22-30); Chloride 100 mmol/L (98-107); Estimated CRCL calculation 87 ml/min; Estimated Glomerular Filt Rate > 60; Glucose 130 mg/dL (65-110); Magnesium 2.1 mg/dL (1.6-2.3); Potassium 4.3 mmol/L (3.4-5.0); Sodium 136 mmol/L (137-145)
[2022-09-17 06:29] LABS: Lactic Acid Reflex 3.2 mmol/L (0.7-2.0)
[2022-09-17 06:34] LABS: Hemoglobin A1C 5.6 % (<5.7)
--- NOTE | 2022-09-17 07:22 | P.PNIM_ITS ---
Progress Note: A&P Assessment and Plan (1) Esophagitis: Code(s): K20.90 - Esophagitis, unspecified without bleeding Status: Acute Assessment and Plan: * CT of the abdomen and pelvis: esophagitis, fluid filled appendix 7mm * Currently on clear liquids. * General surgery consulted thank you for your help * continue with Protonix 40mg BID * Consider GI consult. * Continue Cipro and Flagyl for the possibility of appendicitis * white count of 15.1 (2) Sepsis: Code(s): A41.9 - Sepsis, unspecified organism Status: Acute Assessment and Plan: * Presented with leukocytosis (15.9), tachycardia (106), lactic acidosis (4.7) * Source of infection esophagitis, possible appendicitis * IV fluids given in the ED * Continue hydration at 100ml/hr * Lactic trend is all over * General surgery consulted * IV cipro/flagyl started in the ED and continued (3) Hyperlipidemia: Code(s): E78.5 - Hyperlipidemia, unspecified Status: Acute Assessment and Plan: * continue with home medications (4) Diabetes: Code(s): E11.9 - Type 2 diabetes mellitus without complications Status: Acute Assessment and Plan: * Glucose this am 130 * Accu-Cheks AC and HS * sliding scale insulin * hypoglycemic protocol. * A1c 5.6 * Stable, chronic * trend glucose (5) Anxiety and depression: Code(s): F41.9 - Anxiety disorder, unspecified; F32.A - Depression, unspecified Status: Acute Assessment and Plan: * continue with home medications * Adjust therapy as indicated (6) Hypertension: Code(s): I10 - Essential (primary) hypertension Status: Acute Assessment and Plan: * Currently BP is 135/91 * Continue home lisinopril 20mg PO daily * Trend BP * adjust therapy as indicated Time Spent With Patient Time: 56 minutes Time with patient: Greater than 35 minutes Subjective Date/time seen: 09/17/22 07:22 Interval history: 09/17/22 09/16/22 7195 This is a 67-year-old female patient who has had multiple abdominal surgeries in the past.? The patient was complaining of epigastric pain.? This started on Wednesday and she has had decreased oral intake.? She denied any nausea vomiting or diarrhea.? The patient stated that she has been having a lot of abdominal distention as well as feeling gassy.? She also has been having increased belching as well.? Her white count was noted to be 15.9.? Initially her lactic acid was 4.7 now it is 2.9.? Her glucose was 136.? Her urine is clear in her influenza A/B and COVID are all negative.? The patient has a moderate-sized sliding hiatal hernia.? Wall thickening of the distal esophagus likely esophagitis.? Fluid-filled appendix with diameter 7 mm which is indeterminate fo r appendicitis.? Surgery has been consulted and agreed to see the patient although it is least likely that this is appendicitis.? The patient was given IV fluids, Dilaudid, Protonix, Flagyl and Cipro.? The patient is being admitted to observation status on the date of service of 09/16/2022 Review of Systems Review of Systems: All systems reviewed & are unremarkable except as noted in HPI and below Exam Narrative: General: well-nourished, well-appearing 67-year-o
--- NOTE | 2022-09-17 07:22 | PM.IMPN ---
Progress Note: A&P Assessment and Plan (1) Esophagitis: Code(s): K20.90 - Esophagitis, unspecified without bleeding Status: Acute Assessment and Plan: CT of the abdomen and pelvis: esophagitis, fluid filled appendix 7mm Currently on clear liquids. General surgery consulted thank you for your help continue with Protonix 40mg BID Consider GI consult. Continue Cipro and Flagyl for the possibility of appendicitis white count of 15.1 (2) Sepsis: Code(s): A41.9 - Sepsis, unspecified organism Status: Acute Assessment and Plan: Presented with leukocytosis (15.9), tachycardia (106), lactic acidosis (4.7) Source of infection esophagitis, possible appendicitis IV fluids given in the ED Continue hydration at 100ml/hr Lactic trend is all over General surgery consulted IV cipro/flagyl started in the ED and continued (3) Hyperlipidemia: Code(s): E78.5 - Hyperlipidemia, unspecified Status: Acute Assessment and Plan: continue with home medications (4) Diabetes: Code(s): E11.9 - Type 2 diabetes mellitus without complications Status: Acute Assessment and Plan: Glucose this am 130 Accu-Cheks AC and HS sliding scale insulin hypoglycemic protocol. A1c 5.6 Stable, chronic trend glucose (5) Anxiety and depression: Code(s): F41.9 - Anxiety disorder, unspecified; F32.A - Depression, unspecified Status: Acute Assessment and Plan: continue with home medications Adjust therapy as indicated (6) Hypertension: Code(s): I10 - Essential (primary) hypertension Status: Acute Assessment and Plan: Currently BP is 135/91 Continue home lisinopril 20mg PO daily Trend BP adjust therapy as indicated Time Spent With Patient Time: 56 minutes Time with patient: Greater than 35 minutes Subjective Date/time seen: 09/17/22 07:22 Interval history: 09/17/22 09/16/22 0399 This is a 67-year-old female patient who has had multiple abdominal surgeries in the past.? The patient was complaining of epigastric pain.? This started on Wednesday and she has had decreased oral intake.? She denied any nausea vomiting or diarrhea.? The patient stated that she has been having a lot of abdominal distention as well as feeling gassy.? She also has been having increased belching as well.? Her white count was noted to be 15.9.? Initially her lactic acid was 4.7 now it is 2.9.? Her glucose was 136.? Her urine is clear in her influenza A/B and COVID are all negative.? The patient has a moderate-sized sliding hiatal hernia.? Wall thickening of the distal esophagus likely esophagitis.? Fluid-filled appendix with diameter 7 mm which is indeterminate for appendicitis.? Surgery has been consulted and agreed to see the patient although it is least likely that this is appendicitis.? The patient was given IV fluids, Dilaudid, Protonix, Flagyl and Cipro.? The patient is being admitted to observation status on the date of service of 09/16/2022 Review of Systems Review of Systems: All systems reviewed & are unremarkable except as noted in HPI and below Exam Narrative: General: well-nourished, well-appearing 67-year-old female, sitting up in bed, comfortable, NARD Neuro: awake, alert and oriented x4, speech clear, no focal neuro deficits noted HEENMT: normocephalic, atraumatic, EOMI, sclerae anicteric, moist oral mucosa Respiratory: Clear to auscultation bilaterally without crackles, rhonchi or wheezes, nonlabored breathing Cardio: regular rate, regular rhythm with S1-S2 Abdomen: nondistended, normoactive bowel sounds, soft, nontender to palpation Extremities: no edema, erythema, or tenderness to palpation, DP pulses 2+ bilaterally Skin: no rashes or lesions, warm and dry Psych: appropriate mood and affect, judgment and insight intact
[2022-09-17 07:52] LABS: Glucose Point of Care 138 mg/dl (65-105)
--- NOTE | 2022-09-17 08:49 | PM.CNGS ---
Assessment and Plan Assessment and plan (1) Abnormal CT of the abdomen: Code(s): R93.5 - Abnormal findings on diagnostic imaging of other abdominal regions, including retroperitoneum Status: Acute Assessment and Plan: CT scan reviewed and discussed with the patient. Her appendix is dilated to 7 mm but without any surrounding inflammatory changes. Her presentation, complaints, and physical exam do not correlate with acute appendicitis. Her abdominal pain has resolved and her exam is completely benign. I discussed the case with Dr. Currie. She does not appear to have acute appendicitis and this is not the reason for her leukocytosis or lactic acidosis. Okay to advance her diet as tolerated from our standpoint. No indication for surgery at this time. (2) Acidosis, lactic: Code(s): E87.20 - Acidosis, unspecified Status: Acute Assessment and Plan: Lactic acidosis on admission with some improvement with IV fluid hydration. This is not related to her appendix. Management per Hospitalist. (3) Esophagitis: Code(s): K20.90 - Esophagitis, unspecified without bleeding Status: Acute Assessment and Plan: Suggested on CT. She has been started on Protonix 40 mg IV Q12hrs. Epigastric abdominal pain has resolved. Continue management per Hospitalist. (4) Sepsis: Code(s): A41.9 - Sepsis, unspecified organism Status: Acute Assessment and Plan: Criteria met with leukocytosis, lactic acidosis, and tachycardia on admission. Source is unclear. Blood cultures pending. Lactic acid down to 3.2 this morning. We do not feel the patient has acute appendicitis. Continue antibiotics and further management per Hospitalist. 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 Currie. Thank you for allowing us to see the patient in consultation. History of Present Illness Consult details Consult date: 09/17/22 Reason for consult: other (Abnormal CT findings of the appendix, rule out appendicitis) Requesting physician: Poli Orosco MD Narrative: This is a 67-year-old woman with a history of psoriatic arthritis, rheumatoid arthritis, insulin-dependent type 2 diabetes mellitus, hypertension, and hyperlipidemia, who we have been asked to see in consultation for abnormal CT findings of the appendix. She follows with a Textile Supervisor in [place] for her psoriatic arthritis/RA and was switched from Enbrel to Otezla about 1 week ago. She began to have generalized pain from her knees all the way up her body on Wednesday, which was about 4 days after starting her new medication. She initially thought this was a flare-up from her arthritis and started taking Prednisone. Her generalized pain resolved by the following day with the Prednisone, but she then began to notice burning epigastric abdominal pain two days ago. She denies any aggravating factors. She tried taking pepcid and another reflux medication she cannot recall, without any relief. She then called her Textile Supervisor who had her stop the Otezla and call a Warehouse Foreman. When she called her GI at [facility], they scheduled her for an appointment yesterday. When her daughter came to see
[2022-09-17] MEDS: PANTOPRAZOLE SODIUM IV 40 MG VIAL IV PUSH (09:05)
[2022-09-17 09:06] LABS: Reflex Lactic Acid Yes or No Add Lactic
[2022-09-17] MEDS: SIMETHICONE 80 MG TAB.CHEW PO ×2 (09:06→12:14)
[2022-09-17 09:07] VITALS: PULSE 78
[2022-09-17] MEDS: METOPROLOL SUCCINATE EXT REL 12.5 MG TABCR PO (09:07)
[2022-09-17] MEDS: DULoxetine HCL 60 MG CAPSULE.DR PO (09:07)
[2022-09-17] MEDS: FLUTICASONE PROPIONATE 0.05% NA SPR 16 GM BTL (*BKC) 1 SPRAY NASAL (09:07)
[2022-09-17] MEDS: ATORVASTATIN 40 MG TABLET 80 MG BY MOUTH (09:08)
[2022-09-17] MEDS: cycloSPORINE 0.4 ML OPHTH SOLUTION 1 DROP EACH EYE (09:08)
[2022-09-17] MEDS: lisinopriL 20 MG TABLET PO (09:08)
[2022-09-17] MEDS: PANTOPRAZOLE 40 MG TABLET PO (09:08)
[2022-09-17] MEDS: ASPIRIN 81 MG CHEWABLE TABLET PO (09:08)
[2022-09-17] MEDS: MULTIVITAMINS /C LUTEIN (CENTRUM SILVER) TABLET *BKC 1 TAB PO (09:08)
[2022-09-17] MEDS: LORATADINE 10 MG TABLET PO (09:09)
[2022-09-17] MEDS: SODIUM CHLORIDE 0.9% IV 1,000 ML 100 ML IV CONT (09:13)
[2022-09-17 09:48] LABS: Lactic Acid 3.2 mmol/L (0.7-2.0)
[2022-09-17] MEDS: CIPROFLOXACIN 400 MG/D5W 200ML 200 ML 200 MG IVPB (09:56)
--- NOTE | 2022-09-17 10:45 | PM.DS ---
DS: Admitting Diagnosis Discharge Date 09/17/22 1045 Admitting Diagnosis Esophagitis DS: Discharge Diagnosis Discharge Diagnosis (1) Esophagitis: Code(s): K20.90 - Esophagitis, unspecified without bleeding Status: Acute Assessment and Plan: CT of the abdomen and pelvis: esophagitis, fluid filled appendix 7mm Currently on clear liquids, advance to low residual diet General surgery consulted thank you for your help continue with Protonix 40mg BID Consider GI consult. Continue Cipro and Flagyl for the possibility of appendicitis white count of 15.1 (2) Sepsis: Code(s): A41.9 - Sepsis, unspecified organism Status: Acute Assessment and Plan: Presented with leukocytosis (15.9), tachycardia (106), lactic acidosis (4.7) Source of infection esophagitis, possible appendicitis IV fluids given in the ED Continue hydration at 100ml/hr Lactic trend is all over General surgery consulted IV cipro/flagyl started in the ED and continued (3) Hyperlipidemia: Code(s): E78.5 - Hyperlipidemia, unspecified Status: Acute Assessment and Plan: continue with home medications (4) Diabetes: Code(s): E11.9 - Type 2 diabetes mellitus without complications Status: Acute Assessment and Plan: Glucose this am 130 Accu-Cheks AC and HS sliding scale insulin hypoglycemic protocol. A1c 5.6 Stable, chronic trend glucose (5) Anxiety and depression: Code(s): F41.9 - Anxiety disorder, unspecified; F32.A - Depression, unspecified Status: Acute Assessment and Plan: continue with home medications Adjust therapy as indicated (6) Hypertension: Code(s): I10 - Essential (primary) hypertension Status: Acute Assessment and Plan: Currently BP is 135/91 Continue home lisinopril 20mg PO daily Trend BP adjust therapy as indicated DS: Summary Hospital Course Hospital Course: Patient is a 67-year-old female with a past medical history of multiple abdominal surgeries, RA, diabetes who presented to the ED with complaints of epigastric pain. Patient stated that she was having an issue ever since she started her Otezla. She did have a flare up on Wednesday and she took prednisone there after. She stated that after she did that she started to have abdominal pain. CT of the abdomen was performed and showed a 7 mm fluid-filled appendix which was indeterminate for appendicitis. There was wall thickening of the esophagus which was more likely be esophagitis. General surgery was consulted and has signed off. Patient was rehydrated in the ED. patient did qualify for sepsis with lactic acidosis, leukocytosis, tachycardia, and source of infection. Patient was started on Cipro and Flagyl. Patient denies any current pain stated that she is in pain medicine since yesterday. Patient denies any chest pain, shortness a breath, nausea, vomiting, diarrhea, constipation, weakness or fatigue. Patient was able to tolerate of low residual diet. Patient currently stable for discharge and is very excited about going home. Patient is stable for discharge per labs and vital signs. Status at Discharge Functional status at discharge: independent ambulation Overall status at discharge: patient is progressing back to baseline Time Spent with Patient Time attestation: Total time spent providing and/or coordinating discharge services: 63 minutes Time spent: Greater than 30 minutes Specific discharge activities: Diagnostic testing, chart review, developing a treatment plan, education, care coordination documentation, physical exam, result review Exam Narrative: General: well-nourished, well-appearing 67-year-old female, sitting up in bed, comfortable, NARD Neuro: awake, alert and oriented x4, speech clear, no focal neuro deficits noted HEENMT: norm
--- NOTE | 2022-09-17 10:45 | P.DS_ITS ---
DS: Admitting Diagnosis Discharge Date 09/17/22 1045 Admitting Diagnosis Esophagitis DS: Discharge Diagnosis Discharge Diagnosis (1) Esophagitis: Code(s): K20.90 - Esophagitis, unspecified without bleeding Status: Acute Assessment and Plan: * CT of the abdomen and pelvis: esophagitis, fluid filled appendix 7mm * Currently on clear liquids, advance to low residual diet * General surgery consulted thank you for your help * continue with Protonix 40mg BID * Consider GI consult. * Continue Cipro and Flagyl for the possibility of appendicitis * white count of 15.1 (2) Sepsis: Code(s): A41.9 - Sepsis, unspecified organism Status: Acute Assessment and Plan: * Presented with leukocytosis (15.9), tachycardia (106), lactic acidosis (4.7) * Source of infection esophagitis, possible appendicitis * IV fluids given in the ED * Continue hydration at 100ml/hr * Lactic trend is all over * General surgery consulted * IV cipro/flagyl started in the ED and continued (3) Hyperlipidemia: Code(s): E78.5 - Hyperlipidemia, unspecified Status: Acute Assessment and Plan: * continue with home medications (4) Diabetes: Code(s): E11.9 - Type 2 diabetes mellitus without complications Status: Acute Assessment and Plan: * Glucose this am 130 * Accu-Cheks AC and HS * sliding scale insulin * hypoglycemic protocol. * A1c 5.6 * Stable, chronic * trend glucose (5) Anxiety and depression: Code(s): F41.9 - Anxiety disorder, unspecified; F32.A - Depression, unspecified Status: Acute Assessment and Plan: * continue with home medications * Adjust therapy as indicated (6) Hypertension: Code(s): I10 - Essential (primary) hypertension Status: Acute Assessment and Plan: * Currently BP is 135/91 * Continue home lisinopril 20mg PO daily * Trend BP * adjust therapy as indicated DS: Summary Hospital Course Hospital Course: Patient is a 67-year-old female with a past medical history of multiple abdominal surgeries, RA, diabetes who presented to the ED with complaints of epigastric pain. Patient stated that she was having an issue ever since she started her Otezla. She did have a flare up on Wednesday and she took prednisone there after. She stated that after she did that she started to have abdominal pain. CT of the abdomen was performed and showed a 7 mm fluid-filled appendix which was indeterminate for appendicitis. There was wall thickening of the esophagus which was more likely be esophagitis. General surgery was consulted and has signed off. Patient was rehydrated in the ED. patient did qualify for sepsis with lactic acidosis, leukocytosis, tachycardia, and source of infection. Patient was started on Cipro and Flagyl. Patient denies any current pain stated that she is in pain medicine since yesterday. Patient denies any chest pain, shortness a breath, nausea, vomiting, diarrhea, constipation, weakness or fatigue. Patient was able to tolerate of low residual diet. Patient currently stable for discharge and is very excited about going home. Patient is stable for discharge per labs and vital signs. Status at Discharge Functional status at discharge: independent ambulation Overall status at discharge: patient is
[2022-09-17 11:05] LABS: Glucose Point of Care 160 mg/dl (65-105)
[2022-09-17 13:59] VITALS: BP 113/61; PULSE 77; RESP 14; TEMP 36.4; O2SAT 99
== END 2022-09-17 14:10 | disposition home or self-care (01) ==
LOC: ANHED 16:32 → ANH3MEDSUR 17:42
PROVIDERS: Nurse Practitioner; Surgery; Admitting Provider Internal Medicine; Emergency Provider Emergency Medicine; Visit Provider Internal Medicine
DX: K20.90 Esophagitis, unspecified without bleeding (principal); E87.20 Acidosis, unspecified; A41.9 Sepsis, unspecified organism; L40.50 Arthropathic psoriasis, unspecified; I01.1 Acute rheumatic endocarditis; E11.9 Type 2 diabetes mellitus without complications; Z86.718 Personal history of other venous thrombosis and embolism; I10 Essential (primary) hypertension; E78.5 Hyperlipidemia, unspecified; E66.9 Obesity, unspecified; Z68.37 Body mass index [BMI] 37.0-37.9, adult; F41.9 Anxiety disorder, unspecified; Z20.822 Contact with and (suspected) exposure to COVID-19
CPT/HCPCS: 36415; 74177; 80048; 80053; 81003; 82948; 83036; 83605; 83690; 83735; 84443; 85025; 87040; 87636; 96361; 96365; 96366; 96367; 96375; 96376; 99285; A9270; C9113; G0378; J0744; J1170; J7030; Q9967

== ENCOUNTER 2023-07-07 10:44 | Outpatient (CLI) | payer MEDICARE, SELFPAY ==
[2023-07-07 11:01] LABS: Basophils Percent Auto 0.6 % (0.2-1.2); Eosinophils Absolute Auto 0.1 K/mm3 (0-0.3); Eosinophils Percent Auto 1.7 % (0-4.4); Hematocrit 38.1 % (37.0-47.0); Hemoglobin 12.3 g/dL (12.0-15.0); Immature Granulocyte Absolute 0.01 K/mm3 (0.00-0.031); Immature Granulocyte Percent A 0.2 % (0-0.5); Lymphocytes Absolute Auto 1.76 K/mm3 (0.9-3.2); Mean Corpuscular HGB Conc 32.3 g/dl (32-36); Mean Corpuscular Hemoglobin 27.7 pg (26-34); Mean Corpuscular Volume 85.8 fl (80-100); Mean Platelet Volume 11.1 fl (7.4-10.4); Monocytes Absolute Auto 0.4 K/mm3 (0.1-0.6); Monocytes Percent Auto 7.5 % (2.6-8.5); Neutrophils Absolute Auto 3.1 K/mm3 (1.3-6.7); Platelet Count Result 298 k/mm3 (150-375); Red Blood Count 4.44 M/mm3 (4.2-5.4); Red Cell Distribution Width 15.6 % (11.5-14.5); White Blood Count 5.3 K/mm3 (4.5-10.0)
[2023-07-07 11:31] LABS: Iron 58 ug/dL (37-170)
[2023-07-07 11:33] LABS: Potassium 4.7 mmol/L (3.4-5.0)
[2023-07-07 11:41] LABS: Alanine Aminotransferase 31 U/L (6-35); Albumin Level 4.6 g/dL (3.5-5.1); Alkaline Phosphatase 74 U/L (38-126); Anion Gap 11 mmol/L (8-16); Aspartate Amino Transferase 33 U/L (14-36); Bilirubin,Total 0.6 mg/dL (0.2-1.3); Blood Urea Nitrogen 14 mg/dL (7-17); Calcium 9.2 mg/dL (8.4-10.2); Carbon Dioxide 24 mmol/L (22-30); Chloride 104 mmol/L (98-107); Estimated Glomerular Filt Rate 50; Glucose 121 mg/dL (65-110); Percent Iron Saturation 14 % (20-50); Sodium 139 mmol/L (137-145)
[2023-07-07 12:20] LABS: Ferritin 6.92 ng/mL (11.1-264)
== END 2023-07-07 10:45 | disposition home or self-care (01) ==
PROVIDERS: Visit Provider Internal Medicine Hematology & Oncology
DX: D50.9 Iron deficiency anemia, unspecified (principal)
CPT/HCPCS: 36415; 80053; 82728; 83540; 83550; 85025

== ENCOUNTER 2023-07-21 08:55 | Outpatient (CLI) | payer MEDICARE, SELFPAY ==
--- NOTE | ~2023-07-21 | MM_ITS ---
EXAMINATION: MM screening kamini BI w jorden HISTORY: Screening mammogram TECHNIQUE: Craniocaudal and mediolateral oblique 3-D tomosynthesis images were obtained and synthetic 2-D images were generated. CAD analysis was submitted and interpreted. COMPARISON: 06/05/2022, 05/01/2021, 04/30/2020 bilateral screening mammogram examinations BREAST PARENCHYMAL COMPOSITION: There are scattered areas of fibroglandular density. FINDINGS: There is no evidence of suspicious mass, calcification, or architectural distortion to sugg est malignancy in either breast. There has been no suspicious interval change. IMPRESSION: 1. No mammographic evidence of malignancy. 2. Recommend routine screening mammography in one year. BI-RADS Category 1: Negative Reviewed, dictated and finalized at location A. POURER
== END 2023-07-21 08:56 | disposition home or self-care (01) ==
LOC: ANHIMG 08:56
PROVIDERS: Visit Provider Obstetrics & Gynecology Gynecology
DX: Z12.31 Encounter for screening mammogram for malignant neoplasm of breast (principal)
CPT/HCPCS: 77063; 77067

== ENCOUNTER → 2023-07-22 08:44 | Outpatient (CLI) | payer MEDICARE, SELFPAY ==
--- NOTE | ~2023-07-22 | CT_ITS ---
EXAMINATION: CT sinus wo con DATE: 07/22/2023 08:55 INDICATION: Chronic sinusitis TECHNIQUE: Computed tomography (CT) of the paranasal sinuses was performed without intravenous contra st. The dose-length product was 276.47 mGy-cm. Automated exposure control and iterative reconstructio n technique were employed. COMPARISON: 11/02/2021 FINDINGS: Paranasal sinuses are pneumatized. No significant mucosal thickening. No air-fluid levels. Ostiomeatal units are patent. There is mild leftward nasal septal deviation anteriorly. Mastoids are pneumatized IMPRESSION: 1. No significant sinus disease. Reviewed, dictated and finalized at location L. [facility] SERVICE EDUCATION
== END ==
PROVIDERS: PCP Otolaryngology; Visit Provider Otolaryngology
DX: J32.9 Chronic sinusitis, unspecified (principal)
CPT/HCPCS: 70486

== ENCOUNTER 2023-09-09 14:58 | Outpatient (CLI) | payer MEDICARE, SELFPAY ==
--- NOTE | ~2023-09-09 | DEXA_ITS ---
Bone Density Report Name: ISIDRA SINGH Age: 67 Sex: Female Ethnicity: White Date of : 1955 Indication: postmenopausal; screening for osteoporosis; height loss; history of glucocorticoids; hysterectomy; Referring Provider: REGINA SALAZAR Study: Bone densitometry was performed. Exam Date: September 09, 2023 Accession number: [id number] Bone Density: Region BMD T-score Z-score Classification AP Spine(L1-L4) 1.152 1.0 2.9 Normal Femoral Neck (Left) 0.731 -1.1 0.6 Osteopenia Total Hip (Left) 1.091 1.2 2.6 Normal Femoral Neck (Right) 0.736 -1.0 0.6 Normal Total Hip (Right) 1.055 0.9 2.3 Normal Total Hip Mean 1.073 1.1 2.5 Normal World Health Organization criteria for BMD impression classify patients as: Normal (T-score at or above -1.0), Osteopenia (T-score between -1.0 and -2.5), or Osteoporosis (T-score at or below -2.5). 10-year Fracture Risk(1): Major Osteoporotic Fracture 12% Hip Fracture 1.1% Reported Risk Factors: [place] (), Neck BMD=0.731, BMI=38.4, glucocorticoids (1) FRAX(R) Version 3.08. Fracture probability calculated for an untreated patient. Fracture probability may be lower if the patient has received treatment. Clinical Information Provided by Patient: Has taken Glucocorticoids Has used the following medications: Vitamin D, Calcium Has the following medical conditions: Hysterectomy Patient maximum height was 67.5 Drinks caffeinated beverages Onset of menses at age 17 Number of children 1 Impression: The patient has low bone mass, based on the Left Femoral Neck T-score. The patient has an estimated ten-year risk of hip fracture of 1.1% and an estimated ten-year risk of major fracture of 12%, based on the WHO FRAX algorithm. The patient has risk factors, including: history of glucocorticoid therapy. Discussion: BONE DENSITY IS LOW AT ONE OR MORE SKELETAL SITES. This patient's lowest T-score is low at one or more skeletal sites. It meets the World Health Organization's (WHO) criteria for ?low bone mass? (T-score between -1.0 and -2.5). The patient's 10-year risk of fracture as calculated by FRAX is less than the threshold where pharmacological therapy is recommended by the National Osteoporosis Foundation (NOF). However, all treatment decisions require clinical judgment and consideration of individual patient factors, including patient preferences, comorbidities, previous drug use, risk factors not captured in the FRAX model (e.g., frailty, falls, vitamin D deficiency, increased bone turnover, interval significant decline in bone density) and possible under or overestimation of fracture risk by FRAX. The patient should follow a healthful lifestyle (good nutrition with adequate calcium and vitamin D, and appropriate weight-bearing exercise).
== END 2023-09-09 14:59 | disposition home or self-care (01) ==
PROVIDERS: PCP Otolaryngology; Visit Provider Obstetrics & Gynecology Gynecology
DX: Z78.0 Asymptomatic menopausal state (principal); M85.852 Other specified disorders of bone density and structure, left thigh
CPT/HCPCS: 77080

== ENCOUNTER 2023-10-19 08:31 | Outpatient (CLI) | payer MEDICARE, SELFPAY ==
--- NOTE | ~2023-10-19 | CT_ITS ---
CT of the Abdomen and Pelvis: Indication: Recurrent UTI Technique: 2.5 mm axial scans were obtained through the abdomen and pelvis following intravenous adm inistration of 100 cc of Omnipaque 350. Dose reduction technique was used on this scan by utilizing a utomated exposure control and iterative reconstruction technique. The dose-length product (DLP) was 1 306.61 mGy-cm. COMPARISON: 09/16/2022 Findings: Scans through the lung bases are unremarkable. Small to moderate hiatal hernia present. Stable hepatic cyst noted. Cholecystectomy clips are present. The spleen, pancreas, adrenals and kidn eys are within normal limits. There are atherosclerotic calcifications of the aorta. No lymphadenopa thy. No bowel obstruction or bowel wall thickening. Appendicolith is present, but there is no evidence for acute appendicitis. Images through the pelvis were performed. Urinary bladder unremarkable. Stable small left adnexal cys tic lesion. Patient is status post hysterectomy. No ascites. Impression: No significant abnormality of the system identified. Stable small left adnexal cystic lesion. [id number] hiatal hernia. Reviewed, dictated and finalized at [facility]. ING CLEANER Impression: No significant abnormality of the system identified. Stable small left adnex al cystic lesion. [id number] hiatal hernia.
[2023-10-19 09:13] LABS: Estimated Glomerular Filt Rate > 60
== END 2023-10-19 08:32 | disposition home or self-care (01) ==
DX: K44.9 Diaphragmatic hernia without obstruction or gangrene (principal); N39.0 Urinary tract infection, site not specified
CPT/HCPCS: 74177; Q9967

== ENCOUNTER 2024-07-10 11:36 | Outpatient (CLI) | payer MEDICARE, SELFPAY ==
[2024-07-10 11:54] LABS: Basophils Percent Auto 0.6 % (0.2-1.2); Eosinophils Percent Auto 0.8 % (0-4.4); Hematocrit 40.9 % (37.0-47.0); Hemoglobin 13.1 g/dL (12.0-15.0); Immature Granulocyte Absolute 0.01 K/mm3 (0.00-0.031); Immature Granulocyte Percent A 0.2 % (0-0.5); Lymphocytes Absolute Auto 1.46 K/mm3 (0.9-3.2); Lymphocytes Percent Auto 28.4 % (18.3-44.2); Mean Corpuscular Hemoglobin 29.6 pg (26-34); Mean Corpuscular Volume 92.5 fl (80-100); Mean Platelet Volume 11.5 fl (7.4-10.4); Monocytes Absolute Auto 0.5 K/mm3 (0.1-0.6); Monocytes Percent Auto 8.8 % (2.6-8.5); Neutrophils Absolute Auto 3.2 K/mm3 (1.3-6.7); Neutrophils Percent Auto 61.2 % (45.5-73.1); Platelet Count Result 225 k/mm3 (150-375); Red Blood Count 4.42 M/mm3 (4.2-5.4); Red Cell Distribution Width 13.2 % (11.5-14.5); White Blood Count 5.1 K/mm3 (4.5-10.0)
[2024-07-10 13:42] LABS: Iron 77 ug/dL (37-170)
[2024-07-10 13:53] LABS: Percent Iron Saturation 25 % (20-50)
[2024-07-10 14:09] LABS: Alanine Aminotransferase 52 U/L (6-35); Albumin Level 4.4 g/dL (3.5-5.1); Alkaline Phosphatase 69 U/L (38-126); Anion Gap 7 mmol/L (4-12); Aspartate Amino Transferase 35 U/L (14-36); Bilirubin,Total 0.4 mg/dL (0.2-1.3); Blood Urea Nitrogen 15 mg/dL (7-17); Calcium 9.1 mg/dL (8.4-10.2); Carbon Dioxide 26 mmol/L (22-30); Chloride 103 mmol/L (98-107); Estimated Glomerular Filt Rate > 60; Glucose 106 mg/dL (65-110); Potassium 4.4 mmol/L (3.4-5.0); Sodium 136 mmol/L (137-145)
== END 2024-07-10 11:37 | disposition home or self-care (01) ==
LOC: ANHLAB 11:37
PROVIDERS: Visit Provider Internal Medicine Hematology & Oncology
DX: D50.9 Iron deficiency anemia, unspecified (principal)
CPT/HCPCS: 36415; 80053; 82728; 83540; 83550; 85025